=== PATIENT | female | born 1990 | race Caucasian/White ===

== ENCOUNTER → 2018-11-10 10:59 | Day surgery (SDC) | payer OTHER ==
[~2018-11-10 10:59] MED LIST: Acetaminophen TAB* 325 MG PO PRN; Buffered Lidocaine 1% SYRIN* 1 ML/SYRINGE INTRADERM ONE; Bupivacaine 0.5%* 50 ML VIAL ONE; Famotidine IV* 10 MG/ML 2 ML (20 mg) IV ONE; Famotidine IV* 10 MG/ML 2 ML (20 mg) ONE; KETAMINE HCL* 50 MG/ML 10 ML VIAL ONE; Ketorolac INJ* 30 MG/ML 1 ML VIAL ONE; Lactated Ringers 1000 ML Bag* 1,000 ML IV SCH; Lidocaine 1% INJ* 10 MG/ML 30 ML SDV ONE; Lidocaine 2% PF * 5 ML VIAL ONE; Midazolam* 1 MG/ML 2 ML VIAL (2 MG) ONE; Midazolam* 1 MG/ML 5 ML VIAL (5 MG) ONE; Ondansetron INJ* 2 MG/ML VIAL ONE; Propofol* 10 MG/ML 20 ML BTL ONE; Ropivacaine* 2 MG/ML 20 ML VIAL (0.2%) ONE; fentaNYL* 50 MCG/ML 2 ML VIAL (100 MCG VIAL) ONE
[2018-11-10 15:15] VITALS: BP 107/67
--- NOTE | 2018-11-10 20:28 | OP ---
DATE OF OPERATION: 11/10/18 - [facility] DATE OF : 89 SURGEON: Trey Boyer MD MANAGER VALUATION: VASHTI Barker ANESTHESIOLOGIST: Dr. Lu. ANESTHESIA: Local MAC. PRE-OP DIAGNOSIS: Left volar wrist ganglion cyst. POST-OP DIAGNOSIS: Left volar wrist ganglion cyst. OPERATIVE PROCEDURE: Excision of left volar wrist ganglion cyst. INDICATIONS: Manisha is 28. She has this cyst, it is large, it is painful. We had talked about her options. She had wanted to have it excised. ESTIMATED BLOOD LOSS: 1 mL. COMPLICATIONS: None. FINDINGS: See above and below. DESCRIPTION OF PROCEDURE: Manisha was seen in the preoperative holding area. The correct site, side, and procedure were identified. We came back to the operating room. She was sedated. We had a time-out and then I infiltrated the operative area with 0.2% ropivacaine. The arm was then prepped and draped in the usual fashion and time-out was performed. The arm was exsanguinated with the Esmarch and the tourniquet was inflated to 250 mmHg. I went ahead and made a Cole-type incision over the volar wrist ganglion cyst. The cyst was sitting distal near the STT joint area. The cyst was seen underlying the skin. I performed a marginal excision, staying right on the cyst to try to take great care to preserve the palmar cutaneous branch of the median nerve. I went ahead and excised all around the margins of the cyst and found the stalk coming right off the area near the STT joint. The cyst at this point was amputated and then great care was taken as I cauterized the stalk of the cyst where it came off the joint capsule with the Bovie and with the bipolar so as to avoid any iatrogenic injury to the median nerve. Once I had cauterized the base of the cyst, I re-irrigated out the wound. The skin was closed with 4-0 Monocryl and Steri-Strips. A cock-up wrist splint was applied and she was taken to the recovery room in stable condition. [id number]/[facility] #: [id number] MTDD
== END | disposition home or self-care (01) ==
LOC: OR 10:59
PROVIDERS: ATTEND Orthopaedic Surgery Hand Surgery
DX: M67.432 Ganglion, left wrist (principal)
CPT/HCPCS: 81025; 88304; J1885; J2250; J2405; J2704; J2795; J3010